=== PATIENT | male | born 1935 | race Caucasian/White ===

== ENCOUNTER 2016-11-21 08:02 | Day surgery (SDC) | payer MEDICARE ==
[2016-11-21] MEDS ORDERED: Lactated Ringers 1,000 ML IV SCH (08:15)
[2016-11-21] MEDS ORDERED: Propofol 200 MG/20 ML SDV IV ONE (09:40)
[2016-11-21] MEDS ORDERED: Bupivacaine 0.5% 30 ML SDV INJECT ONE (10:09)
[2016-11-21] MEDS ORDERED: Lidocaine 1% with EPINEPHrine 1:100,000 20 ML MDV INJECT ONE (10:09)
--- NOTE | 2016-11-21 10:43 | PCM.OPNOTE ---
- General Post-Op/Procedure Note Date of Surgery/Procedure: 11/21/16 Operative Procedure(s): egd with bx. excisional bx of scalp lesion with flap closure Findings: gastritis 1 cm raised scalp lesion Pre Op Diagnosis: anemia. scalp lesion Post-Op Diagnosis: gastritis and scalp lesion Anesthesia Technique: Local (9 ml 1 % lido with epi/0.5% buvipicaine), MAC Primary Surgeon: Alex Berman Anesthesia Provider: Rowdy Castellanos Pathology: gastric bx and scalp lesion Complications: None Condition: Good Free Text/Narrative:: see dictation
[2016-11-21 12:22] VITALS: BP 138/82
--- NOTE | 2016-11-21 16:58 | OR ---
DATE OF OPERATION: 11/21/2016 SURGEON: Alex Berman MD PROCEDURE PERFORMED: Esophagogastroduodenoscopy with cold forceps biopsy and excision of scalp lesion with flap closure. PREOPERATIVE DIAGNOSES: History of weight loss with epigastric abdominal pain and scalp lesion. POSTOPERATIVE DIAGNOSES: Gastritis and scalp lesion. INDICATIONS FOR PROCEDURE: This is an 81-year-old white male who is referred with a longstanding history of a 1 cm raised lesion on his scalp. In addition, the patient has had a history of epigastric pain as well as weight loss. He was offered and accepted EGD as well as excision. DESCRIPTION OF OPERATION: Our attention was first turned to the patient's stomach. After an excellent IV sedation was administered, the bite block was inserted. The flexible endoscope was passed without difficulty down the patient's esophagus into the stomach. The stomach was insufflated. Scope was passed through the pylorus to the second portion of duodenum and then slowly withdrawn. The following findings were noted. Duodenum was unremarkable. The stomach demonstrated diffuse atrophic gastritis. Multiple biopsies were taken. The esophagus was unremarkable. The stomach was then deflated and the scope was removed. Attention was then turned to the patient's scalp, and this was prepped and draped in usual sterile manner. A grand total of 9 mL of 1:1 mixture of 1% lidocaine with epinephrine 0.5% bupivacaine was used to infiltrate our area. An elliptical incision was carried out allowing us 5 mm margins around this 1 cm defect, and a 3 x 2 specimen was then passed off the field. It proved to be very difficult to close. We raised flaps to help approximate, but this was unsuccessful. A swing flap was then created by making an arch, approximately 6 cm in length from the apex, i.e. the anterior aspect of the incision laterally to the right ear. This allowed us to effect excellent closure of the skin defect with interrupted 0 Prolene. Dressing was applied. Needle, sponge, and instrument counts were reported as correct. The patient was taken to recovery room in good condition. /[id number] /MODL
== END 2016-11-21 12:15 | disposition home or self-care (01) ==
LOC: FB.SDS 08:02
PROVIDERS: ATTEND Surgery
DX: C44.42 Squamous cell carcinoma of skin of scalp and neck (principal); K29.30 Chronic superficial gastritis without bleeding; I48.2 Chronic atrial fibrillation; E78.5 Hyperlipidemia, unspecified; J45.909 Unspecified asthma, uncomplicated; I11.0 Hypertensive heart disease with heart failure; I50.42 Chronic combined systolic (congestive) and diastolic (congestive) heart failure; I25.10 Atherosclerotic heart disease of native coronary artery without angina pectoris; Z79.01 Long term (current) use of anticoagulants; Z79.899 Other long term (current) drug therapy; Z95.1 Presence of aortocoronary bypass graft; Z98.890 Other specified postprocedural states
CPT/HCPCS: 00164; 14020; 43239; 88305; 88342; 93005; J2704; J7120

== ENCOUNTER 2021-09-04 17:23 | Emergency (ER) | payer MEDICARE ==
[2021-09-04] MEDS ORDERED: Sodium Chloride 0.9% 10 ML Syringe FLUSH PRN (17:38)
[2021-09-04 17:57] VITALS: BP 111/74; PULSE 90
[2021-09-04] MEDS ORDERED: Furosemide 40 MG/4 ML VIAL IVPUSH ONE (19:07)
== END 2021-09-04 20:05 ==
LOC: FB.ED 17:23
DX: I48.91 Unspecified atrial fibrillation (principal); I13.0 Hypertensive heart and chronic kidney disease with heart failure and stage 1 through stage 4 chronic kidney disease, or unspecified chronic kidney disease; I50.9 Heart failure, unspecified; N18.9 Chronic kidney disease, unspecified; R74.8 Abnormal levels of other serum enzymes; I25.10 Atherosclerotic heart disease of native coronary artery without angina pectoris; J45.909 Unspecified asthma, uncomplicated; Z79.899 Other long term (current) drug therapy; Z79.01 Long term (current) use of anticoagulants; Z79.82 Long term (current) use of aspirin
CPT/HCPCS: 36415; 80053; 83880; 84484; 85025; 85610; 96374; 99284; 99285-25; J1940

== ENCOUNTER 2021-09-26 15:01 | Emergency (ER) | payer MEDICARE ==
[2021-09-26] MEDS ORDERED: Carvedilol 6.25 MG Tab PO STA (15:24)
[2021-09-26 15:52] VITALS: BP 117/76; PULSE 99
[2021-09-26 15:53] LABS: ESTIMATED GFR 34 mL/min (>60)
== END 2021-09-26 18:00 | disposition home or self-care (01) ==
LOC: FB.ED 15:01
DX: R06.02 Shortness of breath (principal); R06.01 Orthopnea; I48.91 Unspecified atrial fibrillation; I11.0 Hypertensive heart disease with heart failure; I50.9 Heart failure, unspecified; E78.00 Pure hypercholesterolemia, unspecified; Z79.82 Long term (current) use of aspirin; Z79.01 Long term (current) use of anticoagulants; Z79.899 Other long term (current) drug therapy
CPT/HCPCS: 36415; 80048; 84484; 85027; 93005; 93010; 99282; 99285-25; A9270-GY

== ENCOUNTER 2021-10-02 09:59 | Emergency (ER) | payer MEDICARE ==
[2021-10-02 10:21] VITALS: PULSE 80
[2021-10-02 10:40] LABS: ESTIMATED GFR 32 mL/min (>60)
[2021-10-02] MEDS ORDERED: Diphtheria,Pertussis(Acell),Tetanus Vaccine 0.5 ML Syringe IM ONE (10:43)
[2021-10-02] MEDS ORDERED: Furosemide 40 MG/4 ML VIAL IVPUSH ONE (11:10)
[2021-10-02] MEDS ORDERED: Acetaminophen 325 MG Tab PO ONE (13:06)
== END 2021-10-02 14:00 | disposition home or self-care (01) ==
LOC: FB.ED 09:59
DX: S02.81XA Fracture of other specified skull and facial bones, right side, initial encounter for closed fracture (principal); S01.111A Laceration without foreign body of right eyelid and periocular area, initial encounter; S51.811A Laceration without foreign body of right forearm, initial encounter; I48.91 Unspecified atrial fibrillation; I25.10 Atherosclerotic heart disease of native coronary artery without angina pectoris; E78.00 Pure hypercholesterolemia, unspecified; I11.0 Hypertensive heart disease with heart failure; I50.9 Heart failure, unspecified; J44.9 Chronic obstructive pulmonary disease, unspecified; E03.9 Hypothyroidism, unspecified; Z95.0 Presence of cardiac pacemaker; Z95.1 Presence of aortocoronary bypass graft; Z23 Encounter for immunization; W01.0XXA Fall on same level from slipping, tripping and stumbling without subsequent striking against object, initial encounter; Y93.01 Activity, walking, marching and hiking
CPT/HCPCS: 12002; 12013; 36415; 70450; 71045; 72125; 72170; 80053; 83880; 84484; 85025; 85610; 90471; 90715; 93005; 93010; 96374; 99283; 99284; A9270; J1940

== ENCOUNTER 2021-10-09 14:43 | Observation (INO) | payer MEDICARE ==
[2021-10-09] MEDS ORDERED: Pantoprazole 40 MG Vial IVPUSH ONE (15:12)
[2021-10-09] MEDS ORDERED: Sodium Chloride 0.9% 1,000 ML IV SCH (15:15)
[2021-10-09] MEDS: Sodium Chloride 0.9% 10 ML Syringe FLUSH PRN (15:36)
[2021-10-09 16:11] LABS: ESTIMATED GFR 26 mL/min (>60)
[2021-10-09] MEDS ORDERED: Phytonadione 5 MG in Sodium Chloride 0.9% 50 ML IV ONE (16:32)
[2021-10-09] MEDS ORDERED: Aspirin 81 MG Tab.EC PO PRN (20:23)
[2021-10-09] MEDS ORDERED: [UNRECOGNIZED DRUG - OTHER] INH PRN ×2 (20:23→20:30)
[2021-10-09] MEDS ORDERED: Nitroglycerin 0.4 MG Tab.SL SL PRN (20:23)
[2021-10-09] MEDS ORDERED: SALMETEROL INH PRN ×2 (20:23→20:30)
[2021-10-09] MEDS ORDERED: FLUTICASONE PROPION INH PRN ×2 (20:23→20:30)
[2021-10-09] MEDS ORDERED: Warfarin 5 MG Tab PO SCH ×2 (20:30)
[2021-10-09] MEDS: Sodium Chloride 0.9% 1,000 ML IV SCH (20:40)
[2021-10-09] MEDS: Formoterol/Mometasone 200-5 MCG 8.8 GM Inhaler IH SCH (20:50)
[2021-10-09] MEDS ORDERED: Simvastatin 40 MG Tab PO SCH (21:00)
[2021-10-09] MEDS ORDERED: FLUTICASONE IH SCH (21:00)
[2021-10-09] MEDS ORDERED: SALMETEROL IH SCH (21:00)
[2021-10-09] MEDS ORDERED: Non-Formulary Medication 1 Each (Sacubitril/Valsartan [Entresto 24 Mg-26 Mg Tablet] 1 EACH PO SCH (21:00)
[2021-10-09] MEDS ORDERED: traMADol 50 MG Tab PO PRN (22:43)
[2021-10-09] MEDS ORDERED: Acetaminophen 500 MG Tab PO PRN (22:43)
[2021-10-10 06:15] LABS: ESTIMATED GFR 24 mL/min (>60)
[2021-10-10] MEDS ORDERED: Levothyroxine 100 MCG Tab PO SCH (07:30)
[2021-10-10] MEDS ORDERED: Carvedilol 6.25 MG Tab PO SCH (08:00)
[2021-10-10] MEDS: Formoterol/Mometasone 200-5 MCG 8.8 GM Inhaler IH SCH ×2 (08:18→20:52)
[2021-10-10] MEDS: Carvedilol 12.5 MG Tab PO SCH ×2 (08:35→20:55)
[2021-10-10] MEDS: Pantoprazole 20 MG Tab, Delayed Release PO SCH ×2 (08:38→20:55)
[2021-10-10] MEDS ORDERED: Non-Formulary Medication 1 Each (Cholecalciferol (Vitamin D3) [Vitamin D] 5,000 UNIT Table PO SCH (09:00)
[2021-10-10] MEDS ORDERED: Isosorbide Dinitrate 10 MG Tab PO SCH (09:00)
[2021-10-10] MEDS ORDERED: Ferrous Sulfate 325 MG Tab PO SCH (09:00)
[2021-10-10] MEDS ORDERED: Furosemide 40 MG Tab PO SCH (09:00)
[2021-10-10] MEDS ORDERED: Cholecalciferol (Vitamin D3) 25 MCG Tab PO SCH (09:00)
[2021-10-10] MEDS ORDERED: Multivitamins with Iron/Calcium/Folic Acid/Minerals Tab PO SCH (09:00)
[2021-10-10] MEDS ORDERED: Albuterol 8 GM Inhaler INH SCH (09:00)
[2021-10-10] MEDS: Sodium Chloride 0.9% 1,000 ML IV SCH ×2 (10:01→22:55)
[2021-10-10] MEDS: Polyethylene Glycol 3350 Powder 17 GM Packet PO SCH (13:34)
[2021-10-10] MEDS ORDERED: Acetaminophen 500 MG Tab PO PRN (13:37)
[2021-10-10] MEDS ORDERED: FLUOROURACIL TOP PRN (13:37)
[2021-10-10] MEDS: PANTOPRAZOLE 20 MG PO SCH (19:32)
[2021-10-10] MEDS: Carvedilol 6.25 MG Tab **OWN MED PO SCH (19:32)
[2021-10-10] MEDS: Simvastatin 40 MG Tab **OWN MED PO SCH (20:57)
[2021-10-10] MEDS: ISOSORBIDE DINITRATE 5 MG PO SCH (20:58)
[2021-10-10] MEDS: rOPINIRole 0.5 MG Tab PO SCH (21:00)
[2021-10-11 06:57] LABS: ESTIMATED GFR 26 mL/min (>60)
[2021-10-11] MEDS: Levothyroxine 100 MCG Tab **OWN MED PO SCH (07:05)
[2021-10-11] MEDS: PANTOPRAZOLE 20 MG PO SCH ×2 (07:06→16:46)
[2021-10-11] MEDS: Carvedilol 6.25 MG Tab **OWN MED PO SCH ×2 (08:34→17:39)
[2021-10-11] MEDS: Ferrous Sulfate 325 MG Tab **OWN MED PO SCH (08:35)
[2021-10-11] MEDS: Formoterol/Mometasone 200-5 MCG 8.8 GM Inhaler IH SCH ×2 (08:36→20:50)
[2021-10-11] MEDS: PHYTONADIONE 100 MCG PO SCH (08:36)
[2021-10-11] MEDS: ISOSORBIDE DINITRATE 5 MG PO SCH ×2 (08:37→20:48)
[2021-10-11] MEDS ORDERED: Ferrous Sulfate 325 MG Tab PO SCH (09:00)
[2021-10-11] MEDS ORDERED: Polyethylene Glycol 3350 Powder 17 GM Packet PO SCH (09:00)
[2021-10-11] MEDS: Polyethylene Glycol 3350 Powder 17 GM Packet PO SCH (09:24)
[2021-10-11] MEDS: ENTRESTO PO SCH ×2 (09:25→20:48)
[2021-10-11] MEDS: Sodium Chloride 0.9% 10 ML Syringe FLUSH PRN ×4 (09:27→14:55)
[2021-10-11] MEDS: Furosemide 40 MG/4 ML VIAL IVPUSH SCH ×2 (09:27→14:38)
[2021-10-11] MEDS ORDERED: Warfarin Sliding Scale PO SCH (09:45)
[2021-10-11] MEDS: Albuterol 8 GM Inhaler **OWN MED INH PRN (14:39)
[2021-10-11] MEDS: Warfarin 5 MG Tab *PTOM PO SCH (16:45)
[2021-10-11] MEDS: Simvastatin 40 MG Tab **OWN MED PO SCH (20:47)
[2021-10-11] MEDS: rOPINIRole 0.5 MG Tab PO SCH (20:49)
[2021-10-12] MEDS: Levothyroxine 100 MCG Tab **OWN MED PO SCH (05:23)
[2021-10-12 06:44] LABS: ESTIMATED GFR 28 mL/min (>60)
[2021-10-12] MEDS: PANTOPRAZOLE 20 MG PO SCH ×2 (07:29→17:45)
[2021-10-12] MEDS: Sodium Chloride 0.9% 10 ML Syringe FLUSH PRN ×2 (08:55→14:24)
[2021-10-12] MEDS: Furosemide 40 MG/4 ML VIAL IVPUSH SCH ×2 (08:55→14:19)
[2021-10-12] MEDS: Carvedilol 6.25 MG Tab **OWN MED PO SCH ×2 (08:57→17:46)
[2021-10-12] MEDS: Formoterol/Mometasone 200-5 MCG 8.8 GM Inhaler IH SCH ×2 (08:59→21:32)
[2021-10-12] MEDS: Ferrous Sulfate 325 MG Tab **OWN MED PO SCH (09:00)
[2021-10-12] MEDS: ISOSORBIDE DINITRATE 5 MG PO SCH ×2 (09:00→21:34)
[2021-10-12] MEDS: ENTRESTO PO SCH ×2 (09:01→21:33)
[2021-10-12] MEDS: Polyethylene Glycol 3350 Powder 17 GM Packet PO SCH (09:01)
[2021-10-12] MEDS: PHYTONADIONE 100 MCG PO SCH (09:02)
[2021-10-12] MEDS: Warfarin 5 MG Tab *PTOM PO SCH (16:30)
[2021-10-12] MEDS: Simvastatin 40 MG Tab **OWN MED PO SCH (21:34)
[2021-10-12] MEDS: rOPINIRole 0.5 MG Tab PO SCH (21:34)
[2021-10-13] MEDS: Levothyroxine 100 MCG Tab **OWN MED PO SCH (06:25)
[2021-10-13] MEDS: PANTOPRAZOLE 20 MG PO SCH ×2 (06:31→17:06)
[2021-10-13] MEDS: Carvedilol 6.25 MG Tab **OWN MED PO SCH ×2 (08:13→18:07)
[2021-10-13] MEDS: Formoterol/Mometasone 200-5 MCG 8.8 GM Inhaler IH SCH ×2 (08:14→20:53)
[2021-10-13] MEDS: Polyethylene Glycol 3350 Powder 17 GM Packet PO SCH (08:15)
[2021-10-13] MEDS: Ferrous Sulfate 325 MG Tab **OWN MED PO SCH (08:15)
[2021-10-13] MEDS: ISOSORBIDE DINITRATE 5 MG PO SCH ×2 (08:15→20:56)
[2021-10-13] MEDS: ENTRESTO PO SCH ×2 (08:16→20:55)
[2021-10-13] MEDS: PHYTONADIONE 100 MCG PO SCH (08:16)
[2021-10-13] MEDS: Furosemide 40 MG Tab PO SCH (12:30)
[2021-10-13] MEDS: Albuterol 8 GM Inhaler **OWN MED INH PRN (12:33)
[2021-10-13] MEDS: Furosemide 40 MG/4 ML VIAL IVPUSH SCH (15:01)
[2021-10-13] MEDS: Warfarin 5 MG Tab *PTOM PO SCH (17:05)
[2021-10-13] MEDS: Simvastatin 40 MG Tab **OWN MED PO SCH (20:56)
[2021-10-13] MEDS: rOPINIRole 0.5 MG Tab PO SCH (20:57)
[2021-10-14] MEDS: Levothyroxine 100 MCG Tab **OWN MED PO SCH (05:21)
[2021-10-14 06:19] LABS: ESTIMATED GFR 36 mL/min (>60)
[2021-10-14] MEDS: PANTOPRAZOLE 20 MG PO SCH (06:30)
[2021-10-14 07:44] VITALS: BP 97/68; PULSE 79
[2021-10-14] MEDS: Carvedilol 6.25 MG Tab **OWN MED PO SCH (07:45)
[2021-10-14] MEDS: Formoterol/Mometasone 200-5 MCG 8.8 GM Inhaler IH SCH (09:35)
[2021-10-14] MEDS: Ferrous Sulfate 325 MG Tab **OWN MED PO SCH (09:36)
[2021-10-14] MEDS: ISOSORBIDE DINITRATE 5 MG PO SCH (09:37)
[2021-10-14] MEDS: Polyethylene Glycol 3350 Powder 17 GM Packet PO SCH (09:38)
[2021-10-14] MEDS: PHYTONADIONE 100 MCG PO SCH (09:39)
[2021-10-14] MEDS: ENTRESTO PO SCH (09:39)
[2021-10-14] MEDS: Furosemide 40 MG Tab PO SCH (09:43)
== END 2021-10-14 11:04 | disposition home or self-care (01) ==
LOC: FB.ED 14:43 → FB.MS 10-10 13:29 → UNDOADMIN 10-10 13:29 → FB.MS 10-10 15:59
PROVIDERS: ADMIT Emergency Medicine; ATTEND Family Medicine
DX: R07.9 Chest pain, unspecified (principal); I13.0 Hypertensive heart and chronic kidney disease with heart failure and stage 1 through stage 4 chronic kidney disease, or unspecified chronic kidney disease; I50.42 Chronic combined systolic (congestive) and diastolic (congestive) heart failure; N18.9 Chronic kidney disease, unspecified; N17.9 Acute kidney failure, unspecified; I48.91 Unspecified atrial fibrillation; D50.9 Iron deficiency anemia, unspecified; J44.9 Chronic obstructive pulmonary disease, unspecified; E03.9 Hypothyroidism, unspecified; E78.5 Hyperlipidemia, unspecified; F41.9 Anxiety disorder, unspecified; F32.A Depression, unspecified; I25.10 Atherosclerotic heart disease of native coronary artery without angina pectoris; J90 Pleural effusion, not elsewhere classified; K80.20 Calculus of gallbladder without cholecystitis without obstruction; I72.3 Aneurysm of iliac artery; Z95.2 Presence of prosthetic heart valve; Z95.1 Presence of aortocoronary bypass graft; Z79.01 Long term (current) use of anticoagulants; Z79.899 Other long term (current) drug therapy; Z79.52 Long term (current) use of systemic steroids; Z79.890 Hormone replacement therapy; Z98.890 Other specified postprocedural states; Z79.51 Long term (current) use of inhaled steroids; Z79.84 Long term (current) use of oral hypoglycemic drugs; Z87.19 Personal history of other diseases of the digestive system; Z20.822 Contact with and (suspected) exposure to COVID-19; W19.XXXD Unspecified fall, subsequent encounter
CPT/HCPCS: 36415; 71045; 74176; 80048; 80053; 82270; 83880; 84484; 85025; 85610; 85730; 93005; 94760; 96361; 96375; 96376; A9270; C9113; G0378; J1940; J3430; J3490; J7030; U0002; 93010; 99217; 99219; 99225

== ENCOUNTER 2021-10-18 15:51 | Inpatient (IN) | payer MEDICARE ==
[2021-10-18 16:24] LABS: BASE EXCESS VENOUS,POC 5 mmol/L (-2 - 3+); PCO2 VENOUS,POC 41 mmHg (41-51); PH VENOUS,POC 7.46 pH Units (7.32-7.43)
[2021-10-18] MEDS: Sodium Chloride 0.9% 1,000 ML IV SCH (16:30)
[2021-10-18 17:04] LABS: ESTIMATED GFR 28 mL/min (>60)
[2021-10-18] MEDS ORDERED: Metolazone 2.5 MG Tab PO STA (18:25)
[2021-10-18] MEDS ORDERED: Furosemide 20 MG/2 ML VIAL IVPUSH STA (18:25)
[2021-10-18] MEDS ORDERED: Ondansetron 4 MG/2 ML SDV IV PRN (20:29)
[2021-10-18] MEDS ORDERED: Nitroglycerin 0.4 MG Tab.SL SL PRN (20:36)
[2021-10-18] MEDS ORDERED: FLUOROURACIL TOP PRN (20:36)
[2021-10-18] MEDS ORDERED: Albuterol 8 GM Inhaler INH PRN (20:36)
[2021-10-18] MEDS ORDERED: Warfarin 5 MG Tab PO SCH (20:45)
[2021-10-18] MEDS ORDERED: VALSARTAN PO SCH (21:00)
[2021-10-18] MEDS ORDERED: SACUBITRIL PO SCH (21:00)
[2021-10-18] MEDS: Formoterol/Mometasone 200-5 MCG 8.8 GM Inhaler IH SCH (21:39)
[2021-10-18] MEDS: Simvastatin 40 MG Tab PO SCH (21:39)
[2021-10-18] MEDS: rOPINIRole 0.5 MG Tab PO SCH (21:39)
[2021-10-19] MEDS: Sodium Chloride 0.9% 1,000 ML IV SCH (03:25)
[2021-10-19 06:44] LABS: ESTIMATED GFR 32 mL/min (>60)
[2021-10-19] MEDS: Pantoprazole 20 MG Tab, Delayed Release PO SCH ×2 (06:48→17:49)
[2021-10-19] MEDS: Levothyroxine 100 MCG Tab PO SCH (06:48)
[2021-10-19] MEDS: Carvedilol 6.25 MG Tab PO SCH ×2 (08:04→17:49)
[2021-10-19] MEDS: Formoterol/Mometasone 200-5 MCG 8.8 GM Inhaler IH SCH ×2 (08:05→20:33)
[2021-10-19] MEDS: Cholecalciferol (Vitamin D3) 25 MCG Tab PO SCH (08:06)
[2021-10-19] MEDS: Ferrous Sulfate 325 MG Tab PO SCH (08:07)
[2021-10-19] MEDS: Multivitamin Tab PO SCH (08:07)
[2021-10-19] MEDS ORDERED: Furosemide 40 MG/4 ML VIAL IVPUSH SCH (09:00)
[2021-10-19] MEDS ORDERED: Sodium Chloride 0.9% 10 ML Syringe FLUSH PRN (10:48)
[2021-10-19] MEDS: Polyethylene Glycol 3350 Powder 17 GM Packet PO SCH (11:47)
[2021-10-19] MEDS: Acetaminophen 500 MG Tab PO PRN ×2 (11:50→20:34)
[2021-10-19] MEDS: Furosemide 40 MG/4 ML VIAL IVPUSH SCH (14:14)
[2021-10-19] MEDS ORDERED: Warfarin 5 MG Tab PO SCH (16:00)
[2021-10-19] MEDS: Phytonadione 100 MCG Tab PO SCH (16:15)
[2021-10-19] MEDS: Simvastatin 40 MG Tab PO SCH (20:34)
[2021-10-19] MEDS: rOPINIRole 0.5 MG Tab PO SCH (20:34)
[2021-10-20] MEDS: Acetaminophen 500 MG Tab PO PRN ×4 (00:34→20:05)
[2021-10-20] MEDS: Pantoprazole 20 MG Tab, Delayed Release PO SCH ×3 (05:08→17:46)
[2021-10-20 06:42] LABS: ESTIMATED GFR 30 mL/min (>60)
[2021-10-20] MEDS: Levothyroxine 100 MCG Tab PO SCH (08:16)
[2021-10-20] MEDS: Furosemide 40 MG/4 ML VIAL IVPUSH SCH ×2 (08:16→14:28)
[2021-10-20] MEDS: Carvedilol 6.25 MG Tab PO SCH ×2 (08:16→17:43)
[2021-10-20] MEDS: Polyethylene Glycol 3350 Powder 17 GM Packet PO SCH (08:19)
[2021-10-20] MEDS: Ferrous Sulfate 325 MG Tab PO SCH (08:20)
[2021-10-20] MEDS: Cholecalciferol (Vitamin D3) 25 MCG Tab PO SCH (08:20)
[2021-10-20] MEDS: Phytonadione 100 MCG Tab PO SCH (08:20)
[2021-10-20] MEDS: Multivitamin Tab PO SCH (08:20)
[2021-10-20] MEDS: Formoterol/Mometasone 200-5 MCG 8.8 GM Inhaler IH SCH ×2 (08:21→20:04)
[2021-10-20] MEDS ORDERED: Carboxymethylcellulose Sodium 0.5% Ophth Soln 15 ML Bottle EYEBOTH PRN (12:57)
[2021-10-20] MEDS ORDERED: Warfarin Sliding Scale PO SCH (16:00)
[2021-10-20] MEDS: Simvastatin 40 MG Tab PO SCH (20:04)
[2021-10-20] MEDS: rOPINIRole 0.5 MG Tab PO SCH (20:04)
[2021-10-21] MEDS: Acetaminophen 500 MG Tab PO PRN ×2 (00:05→05:25)
[2021-10-21] MEDS: Pantoprazole 20 MG Tab, Delayed Release PO SCH ×2 (05:24→17:20)
[2021-10-21] MEDS: Levothyroxine 100 MCG Tab PO SCH (05:24)
[2021-10-21 06:56] LABS: ESTIMATED GFR 28 mL/min (>60)
[2021-10-21] MEDS ORDERED: Carvedilol 12.5 MG Tab PO SCH (08:00)
[2021-10-21] MEDS: Polyethylene Glycol 3350 Powder 17 GM Packet PO SCH (08:19)
[2021-10-21] MEDS: Furosemide 40 MG/4 ML VIAL IVPUSH SCH ×2 (08:21→14:10)
[2021-10-21] MEDS: Multivitamin Tab PO SCH (08:22)
[2021-10-21] MEDS: Ferrous Sulfate 325 MG Tab PO SCH (08:22)
[2021-10-21] MEDS: Formoterol/Mometasone 200-5 MCG 8.8 GM Inhaler IH SCH ×2 (08:35→21:42)
[2021-10-21] MEDS: Phytonadione 100 MCG Tab PO SCH (08:38)
[2021-10-21] MEDS: Cholecalciferol (Vitamin D3) 25 MCG Tab PO SCH (08:38)
[2021-10-21] MEDS ORDERED: Isosorbide Dinitrate 10 MG Tab PO SCH (10:30)
[2021-10-21] MEDS: Morphine 10 MG/0.5 ML Oral Syringe PO PRN ×2 (14:11→16:32)
[2021-10-21] MEDS: Carvedilol 6.25 MG Tab PO SCH (17:19)
[2021-10-21] MEDS: rOPINIRole 0.5 MG Tab PO SCH (21:43)
[2021-10-21] MEDS: LORazepam 0.5 MG Tab PO PRN (22:34)
[2021-10-22] MEDS: Morphine 10 MG/0.5 ML Oral Syringe PO PRN ×2 (00:25→08:38)
[2021-10-22 05:09] VITALS: PULSE 89
[2021-10-22] MEDS: Pantoprazole 20 MG Tab, Delayed Release PO SCH (05:11)
[2021-10-22] MEDS: Levothyroxine 100 MCG Tab PO SCH (05:12)
[2021-10-22] MEDS: LORazepam 0.5 MG Tab PO PRN (08:27)
[2021-10-22] MEDS: Furosemide 40 MG/4 ML VIAL IVPUSH SCH (08:27)
[2021-10-22] MEDS: Carvedilol 6.25 MG Tab PO SCH (08:30)
[2021-10-22 09:28] VITALS: BP 96/52
[2021-10-22] MEDS: Polyethylene Glycol 3350 Powder 17 GM Packet PO SCH (10:03)
[2021-10-22] MEDS: Formoterol/Mometasone 200-5 MCG 8.8 GM Inhaler IH SCH (10:04)
[2021-10-22] MEDS ORDERED: Morphine 10 MG/0.5 ML Oral Syringe PO PRN (10:30)
== END 2021-10-22 11:10 | disposition hospice, home (50) | DRG 291 ==
LOC: FB.ED 15:51 → FB.MS 20:30
PROVIDERS: ADMIT Emergency Medicine; ATTEND Family Medicine
DX: I13.0 Hypertensive heart and chronic kidney disease with heart failure and stage 1 through stage 4 chronic kidney disease, or unspecified chronic kidney disease (principal); I50.23 Acute on chronic systolic (congestive) heart failure; I50.43 Acute on chronic combined systolic (congestive) and diastolic (congestive) heart failure; N18.9 Chronic kidney disease, unspecified; N18.32 Chronic kidney disease, stage 3b; R53.1 Weakness; E78.5 Hyperlipidemia, unspecified; F41.9 Anxiety disorder, unspecified; F32.A Depression, unspecified; E78.00 Pure hypercholesterolemia, unspecified; I48.91 Unspecified atrial fibrillation; Z20.822 Contact with and (suspected) exposure to COVID-19; D50.9 Iron deficiency anemia, unspecified; E03.9 Hypothyroidism, unspecified; I25.10 Atherosclerotic heart disease of native coronary artery without angina pectoris; J44.9 Chronic obstructive pulmonary disease, unspecified; Z66 Do not resuscitate; Z51.5 Encounter for palliative care; Z99.81 Dependence on supplemental oxygen; Z91.81 History of falling; Z87.81 Personal history of (healed) traumatic fracture; Z95.0 Presence of cardiac pacemaker; Z79.01 Long term (current) use of anticoagulants; Z95.2 Presence of prosthetic heart valve; Z95.1 Presence of aortocoronary bypass graft; Z79.899 Other long term (current) drug therapy; Z79.52 Long term (current) use of systemic steroids; Z79.890 Hormone replacement therapy; Z79.1 Long term (current) use of non-steroidal anti-inflammatories (NSAID); Z97.3 Presence of spectacles and contact lenses; Z98.42 Cataract extraction status, left eye; Z98.41 Cataract extraction status, right eye; Z87.440 Personal history of urinary (tract) infections; Z85.828 Personal history of other malignant neoplasm of skin; Z87.19 Personal history of other diseases of the digestive system; Z87.891 Personal history of nicotine dependence
CPT/HCPCS: 36415; 70450; 71045; 80053; 81001; 83880; 84484; 85025; 85610; 93005; 96374; 99285; A9270; J1940; J7030; 80048; U0002